=== PATIENT | female | born 1980 | race Caucasian/White ===

== ENCOUNTER 2022-06-18 06:00 | Outpatient (RCR) | payer OTHER, SELFPAY | END 2022-07-10 23:59 | disposition home or self-care (01) | LOC: MPT 06:00 | PROVIDERS: Visit Provider Physical Medicine & Rehabilitation | DX: M54.2 Cervicalgia (principal); M54.9 Dorsalgia, unspecified | CPT/HCPCS: 97110; 97140; 97162 ==

== ENCOUNTER 2022-07-11 06:00 | Outpatient (RCR) | payer SELFPAY | END 2022-08-07 23:59 | disposition home or self-care (01) | LOC: MPT 06:00 | PROVIDERS: Visit Provider Physical Medicine & Rehabilitation | DX: M54.2 Cervicalgia (principal); M54.9 Dorsalgia, unspecified | CPT/HCPCS: 97110; 97140 ==

== ENCOUNTER 2022-08-08 06:00 | Outpatient (RCR) | payer SELFPAY | END 2022-08-20 23:59 | disposition home or self-care (01) | LOC: MPT 06:00 | PROVIDERS: Visit Provider Physical Medicine & Rehabilitation | DX: M54.2 Cervicalgia (principal); M54.9 Dorsalgia, unspecified | CPT/HCPCS: 97110; 97140 ==